=== PATIENT | male | born 1975 | race Caucasian/White ===

== ENCOUNTER 2024-02-06 16:43 | Day surgery (SDC) | payer OTHER, SELFPAY ==
[2024-02-06] VITALS (7 sets, daily range): BP systolic 112–133; BP diastolic 59–96; BMI 27.7
--- NOTE | 2024-02-06 09:29 | ED.GENMED ---
History of Present Illness
General
Chief Complaint: Abdominal Pain
Source: patient
Exam Limitations: none
Time Seen by Provider: 02/06/24 09:23
Nursing documentation reviewed up to this point in time: agreed with
History of Present Illness
History of Present Illness:
48-year-old male without significant past medical history presenting to the emergency department with right lower quadrant abdominal pain starting last night. Worsening today. No associated nausea vomiting no fevers.
Past History
Past History
ED Past Medical History: None
ED Past Surgical History: None
Social History
Tobacco: Non-smoker
Alcohol: Occasional
Personal:
Living: with family
Employment: Employed
Family History
Family History: Other (Noncontributory)
Review of Systems
Review of Systems
Allergies reviewed?: Yes
All Other Systems: ROS reviewed and negative except as documented in HPI and ROS
Phy Exam
Physical Exam
Physical Exam:
GENERAL: Alert , in no apparent distress
EYE: pupils equal and reactive
NECK: Supple, no significant adenopathy.
ENT: o/p clr, mmm.
CARDIAC: Regular rate and rhythm .
LUNGS: Clear breath sounds bilaterally, no acute respiratory distress, no wheezes/rales/rhonchi
ABDOMEN: Right lower quadrant abdominal pain otherwise soft benign abdomen.
NEUROLOGICAL: Alert and oriented, no focal neuro deficits
SKIN: Warm and dry, skin intact.
MUSCULOSKELETAL: No edema, well perfused.
PSYCH: Normal and appropriate interaction.
Course
Orders/Labs/Results
Orders:
Orders
02/06/24 09:27
CT Abd/Pel (IV only)-DH only Urgent
Comment:
Reason For Exam: RLQ pain, no surgeries
02/06/24 09:35
Complete Blood Count/With Diff Urgent
Comprehensive Metabolic Panel Urgent
02/06/24 10:52
Urinalysis Reflex To Culture Urgent
Date Specimen was Collected: 02/06/24
Time Specimen was Collected: 10:46
02/06/24 12:26
Morphine Sulfate 4 mg IV NOW STA
Piperacillin/Tazo 3.375 Gram [Zosyn] 3.375 gram in 50 ml IV NOW
02/06/24 12:36
Ondansetron Injectable [Zofran] 4 mg .ROUTE .STK-MED ONE
02/06/24 12:39
Ondansetron Injectable [Zofran] 4 mg IV NOW STA
Abnormal Lab Results
02/06/24
09:35
RBC 4.50 L 10^6/uL
(4.70-6.10)
MCH 31.8 H pg
(27.0-31.0)
Absolute Neuts (auto) 8.9 H 10^3/uL
(1.4-6.5)
Absolute Lymphs (auto) 0.8 L 10^3/uL
(1.2-3.4)
Absolute Monos (auto) 1.0 H 10^3/uL
(0.1-0.6)
Neutrophils % 82.5 H %
(42.2-75.2)
Lymphocytes % 7.0 L %
(20.5-51.1)
Monocytes % 9.7 H %
(1.7-9.3)
Glucose 146 H mg/dl
(70-99)
02/06/24 09:35
02/06/24 09:35
Vital Signs
Initial and Last Documented VS:
Initial Vital Signs
Temp Pulse Resp BP Pulse Ox
98.4 F 62 18 132/82 98
02/06/24 09:01 02/06/24 09:01 02/06/24 09:01 02/06/24 09:01 02/06/24 09:01
Last Documented Vital Signs
Temp Pulse Resp BP Pulse Ox
98.4 F 54 16 133/77 99
02/06/24 09:01 02/06/24 11:34 02/06/24 11:34 02/06/24 11:34 02/06/24 11:34
MDM/Problems Addressed
MDM/Problems Addressed:
48-year-old male presenting to the emergency department today with concerns of right lower quadrant abdominal pain worsening this morning. No associated fevers nausea or vomiting normal vital signs upon arrival. Labs unremarkable and confirming
appendicitis. Case discussed with general surgery with plans of surgical correction. Patient started on Zosyn.
*Critical Care Note
Total Time (30-74mins, 75-104mins- exclusive of procedures): Not Applicable
ED Attending Note
-
Portions of this chart may have been created with voice recognition software.� Occasional wrong word or��sound alike� substitutions may have occurred due to the inherent limitations of voice recognition software.
Discharge Plan
Departure
Patient Disposition: Admit
Date of Disposition: 02/06/24
Time of Disposition: 12:58
Admit to: Med/Surg
Admit to doctor: Quinton
Presentation/result/management discussed w/ accepting MD/DO: Quinton
Patient with high blood pressure during this ER visit?: No
Condition: Good
Covid-19: Not Applicable
Discharge Problem:
Acute appendicitis
Prescriptions:
No Action
clindamycin HCl 300 MG capsule
300 mg PO QID Qty: 40 0RF
oxycodone-acetaminophen [Percocet] 1 EACH tablet
1 - 2 ea PO Q6HPRN PRN (Reason: pain) Qty: 20 0RF
Referrals:
Cesar Wagner I., DO [Family Provider] -
Interventions
Interventions:
*Risk Screen - Suicide Last Done: 02/06/24 09:01
*General Assessment Last Done: 02/06/24 09:01
*Neglect/Abuse Screening Last Done: 02/06/24 09:01
GM-Uenxru-Vitesqstym Assessment Last Done: 02/06/24 09:33
Discharge Date and Time
Print Language: FRENCH
[2024-02-06 09:44] LABS: % Basophils 0.4 % (0-2); % Eosinophils 0.1 % (0-6); % Immature Granulocytes 0.3 % (0-0.5); % Monocytes 9.7 % (1.7-9.3); % Neutrophils 82.5 % (42.2-75.2); Absolute Lymphocytes 0.8 10^3/uL (1.2-3.4); Absolute Neutrophils 8.9 10^3/uL (1.4-6.5); Hematocrit 39.3 % (39.0-52.0); Hemoglobin 14.3 g/dL (13.0-18.0); Mean Corp Hgb Conc. 36.4 g/dL (33.0-37.0); Mean Corpuscular Hgb 31.8 pg (27.0-31.0); Mean Corpuscular Volume 87.3 fL (80.0-94.0); Mean Platelet Volume 10.4 fL (7.4-10.4); Nucleated Red Blood Cells % 0 % (-); Platelet Count 153 10^3/uL (130-400); Red Cell Dist. Width 12.9 % (11.5-14.5); White Blood Cell Count 10.8 10^3/uL (4.8-10.8)
[2024-02-06 09:56] LABS: ALT (SGPT) 34 U/L (0-50); AST (SGOT) 37 U/L (17-59); Albumin 4.6 g/dl (3.5-5.0); Alkaline Phosphatase 50 U/L (38-126); Blood Urea Nitrogen 15 mg/dl (9-20); Carbon Dioxide 26 mmol/L (22-30); Chloride 100 mmol/L (98-107); Estimated Creatinine Clearance 100 ml/min; Glucose 146 mg/dl (70-99); Potassium 4.1 mmol/L (3.5-5.1); Sodium 137 mmol/L (135-145); Total Bilirubin 0.8 mg/dl (0.2-1.3); Total Protein 6.9 g/dl (6.3-8.2); eGFR > 60.00
[2024-02-06 11:50] LABS: Urine Albumin Negative (Neg - Trace); Urine Bilirubin Negative (Negative); Urine Character Clear (Clear); Urine Color Yellow; Urine Glucose Negative (Negative); Urine Ketone Negative (Negative); Urine Leukocyte Negative (Negative); Urine Nitrite Negative (Negative); Urine Occult Blood Negative (Negative); Urine Specific Gravity 1.015 (<1.030); Urine Urobilinogen Negative (Neg - 1+)
[2024-02-06] MEDS: ZOSYN 50 IV (12:31)
[2024-02-06] MEDS: MORPHINE SULFATE 4 MG IV (12:31)
[2024-02-06] MEDS: ZOFRAN 4 MG IV ×2 (12:39→14:27)
--- NOTE | 2024-02-06 13:47 | CON.GS ---
Medical History
-
Chief Complaint: RLQ abdominal pain
History of Present Illness:
Patient is a 48 yo M with a PMH of anxiety and HLD who presents with 24 hours of RLQ abdominal pain. Mr. Gonzalez states that his discomfort began yesterday afternoon. He describes a generalized abdominal discomfort with sharp pain with palpation
in the RLQ. His symptoms persisted and awoke him from sleep prompting presentation to the ED. No nausea or vomiting. No fevers or chills. He does note some looser nonbloody stools. Family history notable for colonic polyps. Patient has had 2
prior colonoscopies notable for polyps (most recent within the last 5 years). No family history of IBD.
Past Medical History
Past Medical History: Hypercholesterolemia and Psychiatric (Anxiety)
Past Surgical History: None
Social History
Tobacco: Non-Smoker
Alcohol: Occasional
Drug: None
Personal:
Living: With Family
Family History
Family History: Reviewed & Not Pertinent
Allergies / Home Medications
Allergy/AdvReac Type Severity Reaction Status Date / Time
No Known Allergies Allergy Verified 02/06/24 09:00
�Medication �Instructions �Recorded �Confirmed �Type
ascorbic acid (vitamin C) 500 mg 500 mg PO DAILY 02/06/24 02/06/24 History
tablet (Vitamin C)
ascorbic acid 30 mg-collagen, 1 tab PO DAILY 02/06/24 02/06/24 History
hydrolyzed 833.3 mg tablet
(Collagen Skin Renewal)
atorvastatin 10 mg tablet (Lipitor) 10 mg PO HS 02/06/24 02/06/24 History
cholecalciferol (vitamin D3) 25 25 mcg PO DAILY 02/06/24 02/06/24 History
mcg (1,000 unit) tablet (Vitamin
D3)
ibuprofen 200 mg tablet (Advil) 200 mg PO BIDPRN PRN mild pain 02/06/24 02/06/24 History
psyllium 1 packet PO DAILY 02/06/24 02/06/24 History
sertraline 25 mg tablet 25 mg PO HS 02/06/24 02/06/24 History
therapeutic multivitamin 1 tab PO DAILY 02/06/24 02/06/24 History
zinc sulfate 50 mg zinc (220 mg) 50 mg PO DAILY 02/06/24 02/06/24 History
tablet
Review of Systems
-
A 10 point review of systems was completed, and was negative except as per HPI.
Physical Exam
Vital Signs
Temp Pulse Resp BP Pulse Ox
98.4 F 54 16 133/77 99
02/06/24 09:01 02/06/24 11:34 02/06/24 11:34 02/06/24 11:34 02/06/24 11:34
02/05/24 02/06/24 02/07/24
06:59 06:59 06:59
Actual Weight 103.2 kg
Body Mass Index (BMI) 27.7
Lab Results
02/06/24 09:35
02/06/24 09:35
WBC 10.8 10^3/uL (4.8-10.8) 02/06/24 09:35
Hgb 14.3 g/dL (13.0-18.0) 02/06/24 09:35
Hct 39.3 % (39.0-52.0) 02/06/24 09:35
Plt Count 153 10^3/uL (130-400) 02/06/24 09:35
Abs Immat Gran (auto) 0.0 10^3/uL (0-0.05) 02/06/24 09:35
Neutrophils % 82.5 % (42.2-75.2) H 02/06/24 09:35
Physical Exam
General: Well Developed, Well Nourished and No Apparent Distress
Respiratory: Non Labored Respirations
Cardiac: Regular Rhythm
GI: Soft, Non Distended, Tender (RLQ) and Other (No diffuse peritonitis)
Musculoskeletal: No Edema
Skin: Warm and Dry
Neuro: Nonfocal/Grossly Intact
Data Reviewed
-
CT Scan: Image Personally Visualized and interpreted and Report Reviewed by me
Labs: Labs Reviewed by me
Assessment / Plan
-
Patient is a 48 yo M p/w acute appendicitis.
The natural history and pathophysiology of appendicitis was discussed. Anatomy was reviewed. CT scan imaging as a relates to his appendix was reviewed. Options for management including medical management with antibiotics versus surgical
management with appendectomy were considered and discussed. The pros and cons of both approaches was discussed. Specifically, we discussed very other medical management of future episodes of appendicitis versus surgical risks.
Plan for laparoscopic appendectomy. The procedure itself, as well as the risks, benefits, and alternatives was discussed. Specifically, we discussed the risks of bleeding, infection, injury to surrounding structures (bowel and bladder), staple
line leak, need for open procedure. Typical postprocedure recovery including pain management, potential need for additional antibiotics, and 2 weeks not be lifting or strenuous activities was discussed. All questions answered. Consent signed.
-- Laparoscopic appendectomy
-- NPO, IVF
-- Antibiotics: Zosyn
-- Pain control: Tylenol and IV Dilaudid as needed
--- NOTE | 2024-02-06 13:52 | W.SUR.PREOP ---
Pre-Operative Surgical Note
-
I have examined this patient prior to the performance of the scheduled procedure.
The patient's condition is unchanged from the time of the current History and
Physical and the patient is able to undergo the scheduled procedure.
[2024-02-06] MEDS: DILAUDID 0.5 MG IV (14:26)
--- NOTE | 2024-02-06 17:04 | W.IMMPOSTOP ---
Addendum entered and electronically signed by Shiv Alcantara MD 02/06/24 17:13:
[facility]# [id number]
Original Note:
Surgical Immed Post Op Note
-
Primary Surgeon: Quinton
Assisting Surgeon: None
Pre-op Diagnosis: Acute appendicitis
Post-op Diagnosis: Acute appendicitis
Procedure Performed: Laparoscopic appendectomy
Anesthesia Type: General
Specimen / Cultures:
1. Appendix
Estimated Blood Loss: 7 cc
Complications: None
Operative Findings:
1. Acutely inflamed and dilated appendix, tense and large, no evidence of perforation, serous reactive fluid
2. Mesentery taken with Ligasure, base with gabriel load stapler
== END 2024-02-06 19:03 | disposition home or self-care (01) ==
LOC: PACU 16:43
PROVIDERS: Physician Assistant; ATTENDING PHYSICIAN Surgery; EMERGENCY PHYSICIAN Emergency Medicine; FAMILY PHYSICIAN Internal Medicine
DX: K35.80 Unspecified acute appendicitis (principal)
CPT/HCPCS: 44970; 88304; 74177; 80053; 81003; 85025; 96365; 96375; 96376; 99285; C1776; Q9967